=== PATIENT | female | born 1980 | race Two or more races ===

== ENCOUNTER 2017-09-10 18:02 | Emergency (ER) | payer MEDICAID, OTHER ==
[~2017-09-10] VITALS: Ht 162.6 cm; Wt 100.0 kg
[~2017-09-10 18:02] MED LIST: ONDA4TAB12 PO
[2017-09-10 19:08] LABS: BASOPHILS % (AUTO) 0.3 % (0-1); EOSINOPHILS # (AUTO) 0.1 X10'3 (0-0.9); EOSINOPHILS % (AUTO) 1.8 % (0-6); HEMATOCRIT 41.6 % (35.0-45.0); LYMPHOCYTES % (AUTO) 12.4 % (21-51); MEAN CORPUSCULAR HEMOGLOBIN 29.8 PG (27.0-31.0); MEAN CORPUSCULAR HGB CONC 33.5 % (33.0-36.5); MEAN CORPUSCULAR VOLUME 88.9 FL (78-98); MEAN PLATELET VOLUME 8.5 FL (7.4-10.4); MONOCYTES # (AUTO) 0.7 X10'3 (0-0.9); MONOCYTES % (AUTO) 9.2 % (2-12); NEUTROPHILS # (AUTO) 5.9 X10'3 (1.8-7.7); NEUTROPHILS % (AUTO) 76.3 % (42-75); PLATELET COUNT 248 X10'3 (140-440); RED BLOOD COUNT 4.68 X10'6 (4.20-5.60); RED CELL DISTRIBUTION WIDTH 14.2 % (11.5-14.5); WHITE BLOOD COUNT 7.7 X10'3 (4.5-11.0)
[2017-09-10 19:22] LABS: ALANINE AMINOTRANSFERASE 52 U/L (12-78); ALBUMIN 3.8 G/DL (3.4-5.0); ALBUMIN/GLOBULIN RATIO 0.9 (1.1-1.5); ALKALINE PHOSPHATASE 89 IU/L (46-116); ANION GAP 10 (8-16); ASPARTATE AMINO TRANSFERASE 29 U/L (10-37); BILIRUBIN,TOTAL 0.5 MG/DL (0.1-1.0); BLOOD UREA NITROGEN 12 MG/DL (7-18); BUN/CREATININE RATIO 13.5 (6.6-38.0); CALCIUM 9.1 MG/DL (8.5-10.1); CHLORIDE 104 MMOL/L (99-107); CREATININE 0.89 MG/DL (0.40-0.90); GLUCOSE 99 MG/DL (70-104); SODIUM 139 MMOL/L (135-145); TOTAL CARBON DIOXIDE 25.5 MMOL/L (24-32); TOTAL PROTEIN 7.9 G/DL (6.4-8.2); eGFR 71 ML/MIN
[2017-09-10 19:30] LABS: CLARITY,URINE CLEAR (Clear); COLOR,URINE YELLOW (Yellow); GLUCOSE, URINE NEGATIVE (Neg); KETONES,URINE TRACE mg/dl (Neg); LEUKOCYTE ESTERASE ,URINE NEGATIVE (Neg); NITRITES, URINE NEGATIVE (Neg); OCCULT BLOOD,URINE SMALL (Neg); PROTEIN,URINE NEGATIVE (Neg); UROBILINOGEN,URINE 0.2 E.U/dL (0.2-1.0)
[2017-09-10 19:36] LABS: UA COLLECTION TYPE CLN CATCH MIDSTREAM
[2017-09-10 19:43] LABS: BACTERIA,URINE 2+ /HPF (Neg); MUCUS STRANDS FEW /LPF (Neg); RBC,URINE 0-2 /HPF (0-2); SQUAMOUS EPITHELIAL CELL,UR MANY /LPF (FEW); WBC,URINE 0-4 /HPF (0-4)
[2017-09-10] MEDS ORDERED: proCHLORperazine 10 MG/2 ml inj IV ONE (20:40)
[2017-09-10] MEDS ORDERED: dicyclomine 10 MG capsule PO ONE (20:40)
[2017-09-10] MEDS ORDERED: aspirin 325mg tablet PO ONE (20:40)
[2017-09-10] MEDS ORDERED: normal saline 1000ML IV soln IVB ONE (20:40)
[2017-09-10] MEDS ORDERED: ondansetron/PF 4mg/2ml inj IV ONE ×2 (20:40→22:30)
[2017-09-10] MEDS ORDERED: magnesium 2GM in 50ml NS 50 ML IV ONE (20:40)
[2017-09-10 20:44] LABS: URINE HCG NEGATIVE (NEG)
[2017-09-10] MEDS ORDERED: ONDA4TAB9 PO (22:09)
[2017-09-10 23:02] VITALS: BP 135/75
== END 2017-09-10 23:03 | disposition home or self-care (01) ==
LOC: ER 18:03
DX: K29.00 Acute gastritis without bleeding (principal); R51 Headache; Z88.0 Allergy status to penicillin; Z88.6 Allergy status to analgesic agent; Z88.1 Allergy status to other antibiotic agents; Z88.5 Allergy status to narcotic agent
CPT/HCPCS: 36415; 80053; 81001; 81025; 85025; 85610; 96365; 96375; 96376; 99284; J0780; J2405; J3475; J7030

== ENCOUNTER 2022-04-08 19:25 | Emergency (ER) | payer MEDICAID ==
[~2022-04-08] VITALS: Ht 162.6 cm; Wt 1.1 kg
[2022-04-08 19:37] VITALS: BP 143/83
[2022-04-08] MEDS ORDERED: ondansetron 4mg rapidly disintigrating tab PO ONE (22:10)
[2022-04-08] MEDS ORDERED: ONDA4TAB12 PO (22:17)
[2022-04-09] MEDS ORDERED: AZIT-83 PO (00:09)
[2022-04-09] MEDS ORDERED: azithromycin 250mg tablet PO ONE (00:10)
== END 2022-04-09 00:21 | disposition home or self-care (01) ==
LOC: ER 19:26
DX: U07.1 COVID-19 (principal); J02.0 Streptococcal pharyngitis; Z88.0 Allergy status to penicillin; Z88.1 Allergy status to other antibiotic agents; Z88.2 Allergy status to sulfonamides; Z88.5 Allergy status to narcotic agent; Z88.6 Allergy status to analgesic agent
CPT/HCPCS: 87502; 87503; 87635; 87880; 99283; C9803

== ENCOUNTER 2022-11-03 13:58 | Emergency (ER) | payer MEDICAID ==
[~2022-11-03] VITALS: Ht 162.6 cm; Wt 102.0 kg
[2022-11-03 14:30] VITALS: BP 145/91
[2022-11-03] MEDS ORDERED: LIDO20SO16 PO (20:41)
== END 2022-11-03 20:50 | disposition home or self-care (01) ==
LOC: ER 13:58
DX: J02.9 Acute pharyngitis, unspecified (principal); Z88.0 Allergy status to penicillin; Z88.1 Allergy status to other antibiotic agents; Z88.5 Allergy status to narcotic agent; Z88.2 Allergy status to sulfonamides; Z88.6 Allergy status to analgesic agent
CPT/HCPCS: 87081; 87880; 99283